=== PATIENT | male | born 1970 | race Caucasian/White ===

== ENCOUNTER 2022-09-17 19:53 | Emergency (ER) | payer OTHER ==
[~2022-09-17] VITALS: Ht 180.3 cm; Wt 97.5 kg
[2022-09-17 20:25] LABS: BASOPHILS ABSOLUTE AUTO 0.02 K/mm3 (0.00-0.23); BASOPHILS PERCENT AUTO 0 % (0-2); EOSINOPHILS ABSOLUTE AUTO 0.11 K/mm3 (0.00-0.68); EOSINOPHILS PERCENT AUTO 1 % (0-6); Hematocrit 41.6 % (37.0-53.0); IMMATURE GRAN ABSOLUTE AUTO 0.01 K/mm3 (0.00-0.10); IMMATURE GRAN PERCENT AUTO 0 % (0-1); LYMPHOCYTES ABSOLUTE AUTO 2.81 K/mm3 (0.84-5.20); LYMPHOCYTES PERCENT AUTO 33 % (21-46); MONOCYTES ABSOLUTE AUTO 0.85 K/mm3 (0.16-1.47); MONOCYTES PERCENT AUTO 10 % (4-13); Mean Corpuscular HGB 29.9 pg (26.0-34.0); Mean Corpuscular HGB Conc 33.7 g/dL (31.5-36.5); Mean Corpuscular Volume 89 fL (80-100); Mean Platelet Volume 8.9 fL (9.1-12.4); NEUTROPHILS ABSOLUTE AUTO 4.62 K/mm3 (1.96-9.15); NEUTROPHILS PERCENT AUTO 55 % (41-73); Platelet Count 262 K/mm3 (150-400); RDW Coefficient Variation 12.9 % (11.7-14.2); RDW Standard Deviation 41.9 fL (35.1-46.3); Red Blood Cell Count 4.68 M/mm3 (4.30-5.90); White Blood Cell Count 8.42 K/mm3 (4.00-11.30)
[2022-09-17 21:24] LABS: Albumin, Blood 3.8 g/dL (3.4-5.0); Albumin/Globulin Ratio 1.1 (0.8-1.8); Bilirubin, Total 0.2 mg/dL (0.1-1.0); Calcium, Blood 8.9 mg/dL (8.5-10.1); Creatinine, Blood 0.77 mg/dL (0.60-1.20); Globulin, Blood 3.5 g/dL (2.2-4.0); Potassium, Blood 3.9 mmol/L (3.5-5.5); Total Protein, Blood 7.3 g/dL (6.4-8.2)
[2022-09-17] MEDS ORDERED: Percocet 5-3251 EACH PO (21:49)
== END 2022-09-17 22:50 | disposition home or self-care (01) ==
LOC: ER 19:53
PROVIDERS: Emergency Medicine
DX: S30.0XXA Contusion of lower back and pelvis, initial encounter (principal); R20.2 Paresthesia of skin; V03.00XA Pedestrian on foot injured in collision with car, pick-up truck or van in nontraffic accident, initial encounter; Y92.481 Parking lot as the place of occurrence of the external cause
CPT/HCPCS: 36415; 72125; 74177; 80053; 85025; A9270; J1170; J2405; J7030; Q9967

== ENCOUNTER 2023-05-27 12:04 | Emergency (ER) | payer OTHER ==
[~2023-05-27] VITALS: Ht 180.3 cm; Wt 99.8 kg
[~2023-05-27 12:04] MED LIST: AMOCLA875 PO; CYCL10 PO; LOSA25 PO; NEURONTIN300 MG PO; Percocet 5-3251 EACH PO
[2023-05-27 12:30] VITALS: BP 137/104
[2023-05-27 13:03] LABS: BASOPHILS ABSOLUTE AUTO 0.02 K/mm3 (0.00-0.23); BASOPHILS PERCENT AUTO 0 % (0-2); EOSINOPHILS ABSOLUTE AUTO 0.11 K/mm3 (0.00-0.68); EOSINOPHILS PERCENT AUTO 2 % (0-6); Hematocrit 40.8 % (37.0-53.0); Hemoglobin 14.2 g/dL (13.5-17.5); IMMATURE GRAN ABSOLUTE AUTO 0.02 K/mm3 (0.00-0.10); IMMATURE GRAN PERCENT AUTO 0 % (0-1); LYMPHOCYTES ABSOLUTE AUTO 1.74 K/mm3 (0.84-5.20); LYMPHOCYTES PERCENT AUTO 32 % (21-46); MONOCYTES ABSOLUTE AUTO 0.58 K/mm3 (0.16-1.47); MONOCYTES PERCENT AUTO 11 % (4-13); Mean Corpuscular HGB 30.5 pg (26.0-34.0); Mean Corpuscular HGB Conc 34.8 g/dL (31.5-36.5); Mean Corpuscular Volume 88 fL (80-100); Mean Platelet Volume 8.8 fL (9.1-12.4); NEUTROPHILS ABSOLUTE AUTO 2.92 K/mm3 (1.96-9.15); NEUTROPHILS PERCENT AUTO 54 % (41-73); Platelet Count 283 K/mm3 (150-400); RDW Coefficient Variation 12.6 % (11.7-14.2); RDW Standard Deviation 40.3 fL (35.1-46.3); Red Blood Cell Count 4.66 M/mm3 (4.30-5.90); White Blood Cell Count 5.39 K/mm3 (4.00-11.30)
[2023-05-27 13:26] LABS: Albumin, Blood 3.8 g/dL (3.4-5.0); Albumin/Globulin Ratio 1.1 (0.8-1.8); Bilirubin, Total 0.2 mg/dL (0.1-1.0); Bun/Creatinine Ratio 21.6 (12.0-20.0); Calcium, Blood 8.8 mg/dL (8.5-10.1); Creatinine, Blood 0.65 mg/dL (0.60-1.20); Globulin, Blood 3.5 g/dL (2.2-4.0); Potassium, Blood 3.8 mmol/L (3.5-5.5); Total Protein, Blood 7.3 g/dL (6.4-8.2)
== END 2023-05-27 14:53 | disposition home or self-care (01) ==
LOC: ER 12:04
PROVIDERS: Physician Assistant
DX: K40.20 Bilateral inguinal hernia, without obstruction or gangrene, not specified as recurrent (principal); K59.00 Constipation, unspecified
CPT/HCPCS: 74177; 80053; 85025; Q9967

== ENCOUNTER 2023-08-27 20:57 | Emergency (ER) | payer OTHER ==
[~2023-08-27] VITALS: Ht 182.9 cm; Wt 102.1 kg
[2023-08-27 21:26] LABS: BASOPHILS ABSOLUTE AUTO 0.01 K/mm3 (0.00-0.23); BASOPHILS PERCENT AUTO 0 % (0-2); EOSINOPHILS ABSOLUTE AUTO 0.07 K/mm3 (0.00-0.68); EOSINOPHILS PERCENT AUTO 1 % (0-6); Hematocrit 39.2 % (37.0-53.0); Hemoglobin 13.3 g/dL (13.5-17.5); IMMATURE GRAN ABSOLUTE AUTO 0.01 K/mm3 (0.00-0.10); IMMATURE GRAN PERCENT AUTO 0 % (0-1); LYMPHOCYTES ABSOLUTE AUTO 2.51 K/mm3 (0.84-5.20); LYMPHOCYTES PERCENT AUTO 41 % (21-46); MONOCYTES ABSOLUTE AUTO 0.67 K/mm3 (0.16-1.47); MONOCYTES PERCENT AUTO 11 % (4-13); Mean Corpuscular HGB 30.4 pg (26.0-34.0); Mean Corpuscular HGB Conc 33.9 g/dL (31.5-36.5); Mean Corpuscular Volume 90 fL (80-100); NEUTROPHILS ABSOLUTE AUTO 2.92 K/mm3 (1.96-9.15); NEUTROPHILS PERCENT AUTO 47 % (41-73); Platelet Count 258 K/mm3 (150-400); RDW Coefficient Variation 12.6 % (11.7-14.2); RDW Standard Deviation 41.6 fL (35.1-46.3); Red Blood Cell Count 4.37 M/mm3 (4.30-5.90); White Blood Cell Count 6.19 K/mm3 (4.00-11.30)
[2023-08-27 22:04] LABS: Alanine Aminotransfer (ALT/SGP 24 U/L (12-78); Albumin, Blood 3.7 g/dL (3.4-5.0); Albumin/Globulin Ratio 1.1 (0.8-1.8); Alk Phos 58 U/L (50-136); Anion Gap 2 mmol/L (6-16); Aspartate Aminotrans (AST/SGOT 18 U/L (12-37); Bilirubin, Total 0.3 mg/dL (0.1-1.0); Blood Urea Nitrogen 15 mg/dL (8-24); Bun/Creatinine Ratio 18.1 (12.0-20.0); CO2, Blood 31 mmol/L (21-32); Calcium, Blood 8.6 mg/dL (8.5-10.1); Chloride, Blood 109 mmol/L (98-108); Creatinine, Blood 0.83 mg/dL (0.60-1.20); Globulin, Blood 3.4 g/dL (2.2-4.0); Glomerular Filtration Rate 105 (60-); Glucose, Blood 104 mg/dL (70-99); Potassium, Blood 3.9 mmol/L (3.5-5.5); Sodium, Blood 142 mmol/L (136-145); Total Protein, Blood 7.1 g/dL (6.4-8.2)
[2023-08-27 22:19] LABS: Cholesterol 176 mg/dL (50-200); LDL Direct Measurement 122 mg/dL (0-130); Triglycerides 143 mg/dL (30-160)
[2023-08-27 23:30] VITALS: BP 129/91
== END 2023-08-28 00:13 | disposition home or self-care (01) ==
LOC: ER 20:57
PROVIDERS: Emergency Medicine; Physician Assistant
DX: R51.9 Headache, unspecified (principal); R42 Dizziness and giddiness; G47.00 Insomnia, unspecified; R53.1 Weakness; R20.2 Paresthesia of skin
CPT/HCPCS: 70450; 70496; 70498; 80053; 82465; 83721; 84478; 85025; 96374-59; 96375-59; 99284-25; A9270; J1200; J1630; Q9967

== ENCOUNTER 2023-09-23 10:15 | Emergency (ER) | payer OTHER ==
[~2023-09-23] VITALS: Ht 182.9 cm; Wt 102.1 kg
[2023-09-23] MEDS ORDERED: PAXLOVID 300-11 EAC1 PO (11:24)
[2023-09-23 11:36] VITALS: BP 122/93
[2023-09-23] MEDS ORDERED: TRAZ100 PO (11:39)
[2023-09-23] MEDS ORDERED: LOSA50 PO (11:40)
== END 2023-09-23 11:44 | disposition home or self-care (01) ==
LOC: ER 10:15
DX: U07.1 COVID-19 (principal); I10 Essential (primary) hypertension; Z79.899 Other long term (current) drug therapy
CPT/HCPCS: 99283

== ENCOUNTER 2024-03-07 18:44 | Emergency (ER) | payer OTHER ==
[~2024-03-07] VITALS: Ht 182.9 cm; Wt 97.5 kg
[~2024-03-07 18:44] MED LIST changes: +LOSA50 PO; +OXYC10TA19; +PAXLOVID 300-11 EAC1 PO; +TRAZ100 PO
[2024-03-07 19:17] VITALS: BP 144/101
[2024-03-07] MEDS ORDERED: HYDR1TAB94 PO (19:53)
== END 2024-03-07 21:00 | disposition home or self-care (01) ==
LOC: ER 18:44
DX: K04.7 Periapical abscess without sinus (principal); K02.9 Dental caries, unspecified; I10 Essential (primary) hypertension; Z79.899 Other long term (current) drug therapy
CPT/HCPCS: 99282

== ENCOUNTER 2024-07-28 07:44 | Day surgery (SDC) | payer OTHER ==
[~2024-07-28] VITALS: Ht 182.9 cm; Wt 101.0 kg
[~2024-07-28 07:44] MED LIST changes: +HYDR1TAB94 PO
[2024-07-28] MEDS ORDERED: PRAZ2 (08:04)
[2024-07-28] MEDS ORDERED: Norco 7.5-3251 EACH (08:04)
[2024-07-28] MEDS ORDERED: LORA2 (08:05)
[2024-07-28] MEDS ORDERED: Lactated Ringer's 1,000 ML IV ONE ×2 (08:30→09:32)
[2024-07-28] MEDS ORDERED: CeFAZolin Sodium 2,000 MG VIAL ONE (09:31)
[2024-07-28] MEDS ORDERED: NS 50 ML IV ONE (09:32)
[2024-07-28] MEDS ORDERED: Ropivacaine 0.5% HCL/PF 5 MG/ML 30ML Vial ONE (09:47)
[2024-07-28] MEDS ORDERED: Midazolam HCl 1MG / ML 2ML Vial ONE (09:59)
[2024-07-28] MEDS ORDERED: propofoL 20 ML IV ONE (10:01)
[2024-07-28] MEDS ORDERED: FentaNYL Citrate 50 MCG/ML 2 ML Injection ONE ×2 (10:01→11:32)
[2024-07-28] MEDS ORDERED: Rocuronium Bromide 10 MG/ML 5ML Injection IV ONE (10:16)
[2024-07-28] MEDS ORDERED: Ondansetron HCl 2 MG / ML 2ML Vial ONE (10:23)
[2024-07-28] MEDS ORDERED: Dexamethasone Sod Phos 10 MG/ML 1ML VIAL ONE (10:23)
[2024-07-28] MEDS ORDERED: Ketorolac Tromethamine 30mg Vial ONE (10:23)
[2024-07-28] MEDS ORDERED: Phenylephrine HCl 100 MCG/ML-NS 10MLSYR (1MG/10ML) ONE ×2 (10:28→10:38)
[2024-07-28] MEDS ORDERED: ePHEDrine Sulfate 50 MG/ML 1ML Injection ONE (10:42)
[2024-07-28] MEDS ORDERED: Vasopressin 20 UNITS/ML 1ML Vial ONE (10:49)
[2024-07-28] MEDS ORDERED: Sugammadex Sodium 200 MG/2ML SDV (100 MG/ML) ONE (10:58)
--- NOTE | 2024-07-28 11:57 | NUR ---
07/28/24 1157 Anna Villarreal PT HAS BEEN HAVING PAIN IN BOTH SHOULDERS. 25 MCG FENTANYL GIVEN 3 TIMES FOR 75 MCG TOTAL. EKG SET UP AND RESULTS SHOW NORMAL, NO ISSUES.
[2024-07-28 12:25] VITALS: BP 141/89
--- NOTE | 2024-07-28 12:26 | NUR ---
07/28/24 1226 Anna Villarreal PT HAS A AMRK ON HIS LEFT CHEEK. HE SAID IT IS SPOT THE MAINFRAME CONSULTANT IS DEALING WITH AND DID NOT HAPPEN HERE.
[2024-07-28] MEDS ORDERED: HYDROcodone 5-APAP 325 TAB ONE (12:35)
== END 2024-07-28 13:00 | disposition home or self-care (01) ==
LOC: ORSCSDS 07:44
PROVIDERS: Orthopaedic Surgery
PROC: 0SBD4ZZ Excision of Left Knee Joint, Percutaneous Endoscopic Approach (ICD-10-PCS; principal; 2024-07-28 09:30)
DX: S83.242A Other tear of medial meniscus, current injury, left knee, initial encounter (principal); S89.92XD Unspecified injury of left lower leg, subsequent encounter; M17.12 Unilateral primary osteoarthritis, left knee; E78.5 Hyperlipidemia, unspecified; I10 Essential (primary) hypertension; F43.10 Post-traumatic stress disorder, unspecified; Z79.899 Other long term (current) drug therapy
CPT/HCPCS: 93005; 93010; A9270; J0690; J1100; J1885; J2250; J2371; J2405; J2704; J2795; J3010; J7120

== ENCOUNTER 2025-02-08 08:22 | Day surgery (SDC) | payer OTHER ==
[~2025-02-08] VITALS: Ht 182.9 cm; Wt 95.5 kg
[~2025-02-08 08:22] MED LIST changes: +LORA2; +Lidocaine HCl 2% 10 ML SDA ONE; +Norco 7.5-3251 EACH; +PRAZ2
[2025-02-08] MEDS ORDERED: CeFAZolin Sodium 2,000 MG VIAL ONE (08:28)
[2025-02-08] MEDS ORDERED: Lactated Ringer's 1,000 ML IV ONE ×2 (08:50→08:57)
--- NOTE | 2025-02-08 08:57 | NUR ---
02/08/25 0857 PORFIRIO LEGGETT AT BEDSIDE
[2025-02-08] MEDS ORDERED: propofoL 20 ML IV ONE (08:58)
[2025-02-08] MEDS ORDERED: FentaNYL Citrate 50 MCG/ML 2 ML Injection ONE ×2 (08:58→10:48)
[2025-02-08] MEDS ORDERED: Bupivacaine 0.5% HCl 5 MG/ML 30MLVIAL ONE (09:20)
[2025-02-08] MEDS ORDERED: Midazolam HCl 1MG / ML 2ML Vial ONE (09:21)
[2025-02-08] MEDS ORDERED: Dexamethasone Sod Phos 10 MG/ML 1ML VIAL ONE (10:15)
[2025-02-08] MEDS ORDERED: Phenylephrine HCl 100 MCG/ML-NS 10MLSYR (1MG/10ML) ONE (10:15)
[2025-02-08] MEDS ORDERED: Ondansetron HCl 2 MG / ML 2ML Vial ONE (10:15)
[2025-02-08] MEDS ORDERED: Sugammadex Sodium 200 MG/2ML SDV (100 MG/ML) ONE (10:28)
[2025-02-08] MEDS ORDERED: Ketorolac Tromethamine 30mg Vial ONE (10:31)
[2025-02-08] MEDS ORDERED: HYDROcodone 5-APAP 325 TAB ONE (10:51)
[2025-02-08] MEDS ORDERED: OxyCODONE 5 mg/Acetamin 325 mg TABLET ONE ×2 (10:58→11:46)
--- NOTE | 2025-02-08 11:14 | NUR ---
02/08/25 1114 CHELA LEE IN AT BEDSIDE. PT STARTING TO EAT. PAIN CURRENTLY 06/10. DR HARLEY CAME IN AND INCREASED HIS PO PAIN MEDICATION TO PERCOCET 5/325MG - MAY HAVE SECOND DOSE IN 30 MINUTES PRN.
[2025-02-08 11:54] VITALS: BP 115/86
== END 2025-02-08 12:05 | disposition home or self-care (01) ==
LOC: ORSCSDS 08:22
PROVIDERS: Orthopaedic Surgery
PROC: 01B60ZZ Excision of Radial Nerve, Open Approach (ICD-10-PCS; principal; 2025-02-08 09:30)
PROC: 0XQG0ZZ Repair Right Wrist Region, Open Approach (ICD-10-PCS; principal; 2025-02-08 09:30)
DX: S63 Dislocation and sprain of joints and ligaments at wrist and hand level (principal); I10 Essential (primary) hypertension; G47.33 Obstructive sleep apnea (adult) (pediatric); E78.5 Hyperlipidemia, unspecified; F43.10 Post-traumatic stress disorder, unspecified; F41.9 Anxiety disorder, unspecified; F17.210 Nicotine dependence, cigarettes, uncomplicated; F17.220 Nicotine dependence, chewing tobacco, uncomplicated; F17.290 Nicotine dependence, other tobacco product, uncomplicated; Z79.899 Other long term (current) drug therapy
CPT/HCPCS: A9270; C1713; J0690; J1100; J1885; J2003; J2250; J2371; J2405; J2704; J3010; J7120